=== PATIENT | male | born 1950 | race Caucasian/White ===

== ENCOUNTER 2016-08-26 11:16 | Emergency (ER) | payer SELFPAY ==
[~2016-08-26] VITALS: Ht 190.5 cm; Wt 125.0 kg
[2016-08-26 11:18] VITALS: BP 177/116; PULSE 88; RESP 18; TEMP 97.8; O2SAT 97
--- NOTE | 2016-08-26 12:01 | PD ---
HPI Chief Complaint: Back/ Neck Pain or Injury Time Seen by Provider: 11:58 Travel History International Travel<30 days: No Contact w/Intl Traveler<30days: No Traveled to known affect area: No History of Present Illness HPI Patient comes in complaining of tailbone and right rib pain ongoing for approximately 2 weeks. Patient states [place] Patient denies ever being evaluated for this. Patient has been using [id number] medication for his symptoms. Pain is worse with sitting long periods of time. Patient reports rib pain has improved since initial onset of her still having some comfort there from time to time. Denies any loss/change in bowel or bladder, shortness of breath, chest pain, nausea, vomiting, or drug use. PFSH Past Medical History Medical History: Denies Significant Hx Past Surgical History Tonsillectomy: Yes Social History Alcohol Use: Yes (A FEW BEERS DAILY) Tobacco Use: Yes (CIGAR) Substance Use: No Allergies-Medications (Allergen,Severity, Reaction): Coded Allergies: No Known Allergies (Unverified , 08/26/16) Reported Meds & Prescriptions Reported Meds & Active Scripts Active Naprosyn (Naproxen) 500 Mg Tab 500 Mg PO Q12HR PRN Tramadol (Tramadol HCl) 50 Mg Tab 50 Mg PO Q8H PRN Review of Systems Except as stated in HPI: all other systems reviewed are Neg Physical Exam Narrative GENERAL: Well-developed, overly nourished, in no acute distress, and non-ill appearing. SKIN: Warm and dry. HEAD: Atraumatic. Normocephalic. EYES: Pupils equal and round. EOMI. No scleral icterus. No injection or drainage. ENT: No nasal bleeding or discharge. Mucous membranes pink and moist. NECK: Trachea midline. Supple. No nuclear rigidity. CARDIOVASCULAR: Regular rate and rhythm. No murmur appreciated. RESPIRATORY: No accessory muscle use. No respiratory distress. Clear to auscultation. Breath sounds equal bilaterally. Patient reports tenderness to palpation over right fourth/fifth rib midaxillary. There is no crepitus or step -off noted. GASTROINTESTINAL: Abdomen soft, non-tender, nondistended. Hepatic and splenic margins not palpable. No pulsatile mass. MUSCULOSKELETAL: No obvious deformities. No clubbing. No cyanosis. No edema. Full range of motion. No tenderness, numbness or midline lumbar spine. Patient reports that he noticed sacrum more right than left. Straight leg test negative bilaterally. Patient is able to ambulate normally and bear full weight. NEUROLOGICAL: Awake and alert. No obvious cranial nerve deficits. Motor grossly within normal limits. Normal speech. PSYCHIATRIC: Appropriate mood and affect; insight and judgment normal. Data Data Last Documented VS Vital Signs Date Time Temp Pulse Resp B/P Pulse Ox O2 Delivery O2 Flow Rate FiO2 08/26/16 12:05 157/85 08/26/16 11:18 97.8 88 18 97 Room Air Orders Sacrum And Coccyx (08/26/16 ) Ribs, Uni (W/Exp Cxr-Min 3vw) (08/26/16 ) Resp Incentive Spirometry (08/26/16 ) MDM Medical Decision Making Medical Screen Exam Complete: Yes Emergency Medical Condition: Yes Differential Diagnosis Fracture, strain, contusion, other Narrative Course The patient sustained a fracture. The distal extremity appears neurovascularly intact, without evidence of neurovascular injury nor compartment syndrome. Tendon exam also was intact. The patient was discharged on pain medication along with fracture care instructions and given warnings for vascular compromise. The patient is to follow up with Orthopedics. The patient agrees with plan. The patient suffered a minor chest wall contusion. There is no clinical evidence to suggest intrathoracic injury nor cardiac injury at this time. The patient has no significant pain, shortness of breath or dyspnea. The patient moves air well without difficulty and is clear to auscultation. Heart sounds are audible without rubs, murmurs or gallops. There is no palpable crepitus. Pulses are symmetrical and strong. There is no significant tenderness over the lower chest to suggest injury to the liver nor spleen. Chest X-ray was normal without evidence of fracture, pneumothorax or hemothorax. The Mediastinum appeared within normal limits. Diagnosis was discussed with the patient. The patient is to return if develops any worsening pain difficulty breathing, or if coughs up blood or develops fever. Patient agrees with plan and was recommended to follow up with their regular physician. Patient in no obvious distress upon re-evaluation. All pertinent Radiology result(s) discussed with patient. Patient was asked if they wanted to speak to my attending, which the patient did not wish to do at this time. Any questions/ concerns in reference to patient diagnosis/condition discussed and clarified prior to patient's discharge. Reinforced sheer importance of close follow up with patient's primary physician or primary care clinic. Instructed patient to return to ED immediately, if symptoms return/worsen. Pt showed understanding of above instructions. Further instructions and recommendations were detailed in discharge paperwork. Pt ambulated without difficulty out of ED at discharge. Diagnosis Primary Impression: Sacral fracture, closed Qualified Code: S32.10XA - Closed fracture of sacrum, unspecified portion of sacrum, initial encounter Additional Impression: Contusion of rib on right side Qualified Code: S20.211A - Contusion of rib on right side, initial encounter Referrals: Alex Sam MD Patient Instructions: General Instructions, Rib Contusion (ED), Sacral Fracture (ED) Additional Instructions: Follow-up with your primary care physician and/or orthopedics in 2-3 days for reevaluation. Take all medication as prescribed. Apply ice affected area 20 minutes per hour as needed for pain. Use a hemorrhoid pillow [id number] to help alleviate symptoms. Use incentive spirometer as instructed to decrease chances of developing a pneumonia. Return to the emergency department if symptoms get worse. Med/Other Pt SpecificInfo: Prescription(s) given Scripts Naproxen (Naprosyn)500 Mg Cel702 Mg PO Q12HR PRN (PAIN SCALE 1 TO 10) #14 TAB Ref 0 Prov:Michelle Hay DO 08/26/16 Tramadol 50 Mg Tab50 Mg PO Q8H PRN (PAIN GREATER THAN 7) #7 TAB Ref 0 Prov:Michelle Hay DO 08/26/16 Disposition: 01 DISCHARGE HOME Condition: Stable Agapito Mac Aug 26, 2016 12:01
[2016-08-26 12:05] VITALS: BP 157/85
--- NOTE | 2016-08-26 12:50 | RADRPT ---
EXAM DATE/TIME: 08/26/2016 12:10 [facility] COMPARISON: No previous studies available for comparison. INDICATIONS : Generalized Pain Right Ribs after fall. MEDICAL HISTORY : None. SURGICAL HISTORY : None. ENCOUNTER: Initial ACUITY: 2 weeks PAIN SCORE: 7/10 LOCATION: Right Ribs. FINDINGS: Multiple views of the right ribs were performed. There is no evidence of displaced fracture. No deanna tructive lesions or areas of periosteal thickening are seen. Expiratory view of the chest is negativ e for pneumothorax. The mediastinal structures are midline. CONCLUSION: Negative for displaced fracture. Alfredito Liriano MD FACR on August 26, 2016 at 12:48 Board Certified Radiologist. This report was verified electronically.
--- NOTE | 2016-08-26 12:51 | RADRPT ---
EXAM DATE/TIME: 08/26/2016 12:17 [facility] COMPARISON: No previous studies available for comparison. INDICATIONS : Generalized Tailbone pain after fall. MEDICAL HISTORY : None. SURGICAL HISTORY : None. ENCOUNTER: Initial ACUITY: 2 weeks PAIN SCORE: 7/10 LOCATION: Sacrum and Coccyx. FINDINGS: There is nondisplaced fracture of the distal sacrum. CONCLUSION: Distal sacral fracture in reasonable alignment.. Alfredito Liriano MD FACR on August 26, 2016 at 12:49 Board Certified Radiologist. This report was verified electronically.
[2016-08-26] MEDS ORDERED: TRAM50TA PO (13:00)
[2016-08-26] MEDS ORDERED: NAPR500 PO (13:00)
== END 2016-08-26 13:31 | disposition home or self-care (01) ==
LOC: NEPB 11:16
DX: S32.10XA Unspecified fracture of sacrum, initial encounter for closed fracture (principal); S20.211A Contusion of right front wall of thorax, initial encounter; Z72.0 Tobacco use; W00.0XXA Fall on same level due to ice and snow, initial encounter; Y99.8 Other external cause status
CPT/HCPCS: 71101; 72220; 94150; 99283